=== PATIENT | female | born 1980 | race Caucasian/White ===

== ENCOUNTER 2016-05-28 20:58 | Emergency (ER) | payer MEDICAID ==
[~2016-05-28] VITALS: Ht 167.6 cm; Wt 104.8 kg
[2016-05-28 21:37] LABS: Basophils # (auto) 0.1 uL; Basophils % (auto) 0.5 % (0.0-2.0); Eosinophils # (auto) 0.4 uL; Eosinophils % (auto) 4.2 % (0.0-7.0); Hematocrit 36.2 % (36.0-46.0); Hemoglobin 12.1 g/dL (12.2-16.2); Lymphocytes # (auto) 2.8 uL; Lymphocytes % (auto) 29.4 % (10.0-50.0); Mean Corpuscular Hemoglobin 29.6 pg (28.0-32.0); Mean Corpuscular Hgb Conc. 33.5 g/dL (32.0-36.0); Mean Corpuscular Volume 88.3 fL (80.0-100.0); Monocytes # (auto) 0.6 uL; Monocytes % (auto) 6.1 % (0.0-12.0); Neutrophils # (auto) 5.7 uL; Neutrophils % (auto) 59.8 % (37.0-80.0); Platelet Count (auto) 300 10^3/uL (140-450); Red Cell Distribution Width 13.4 % (11.6-16.0); White Blood Cell 9.5 10^3/uL (4.4-10.8)
[2016-05-28 21:47] LABS: Potassium 3.4 mmol/L (3.5-5.1)
[2016-05-28 21:48] LABS: Albumin 3.8 g/dL (3.4-5.0); BUN/Creatinine Ratio 10.3; Calcium 8.7 mg/dL (8.5-10.1)
[2016-05-28 21:51] LABS: Bilirubin, Total 0.9 mg/dL (0.2-1.0); INR 0.98 (0.9-1.15); Partial Thromboplastin Time 25.2 sec (22.64-33.71); Prothrombin Time 10.1 sec (9.37-12.3); Total Protein 7.1 g/dL (6.4-8.2)
[2016-05-29 03:08] VITALS: BP 123/57
[2016-05-29 03:24] LABS: Urine Bilirubin Negative (Negative); Urine Blood 1+ /uL (Negative); Urine Color Yellow (Yellow); Urine Glucose Normal (Normal); Urine Ketone Negative (Negative); Urine Mucus FEW (None Seen); Urine Nitrite Negative (Negative); Urine RBC 5 /hpf (0 - 4); Urine Squamous Epithelial Cell FEW /hpf (<5); Urine Urobilinogen Normal (Negative); Urine pH 5.5 (5.0-8.0)
== END 2016-05-29 05:16 | disposition home or self-care (01) ==
LOC: ER 21:01
DX: O20.0 Threatened abortion (principal); Z3A.01 Less than 8 weeks gestation of pregnancy; R10.9 Unspecified abdominal pain
CPT/HCPCS: 36415; 76801; 80053; 81001; 84702; 85025; 85610; 85730

== ENCOUNTER 2020-02-07 21:46 | Emergency (ER) | payer MEDICAID ==
[~2020-02-07] VITALS: Ht 167.6 cm; Wt 107.5 kg
[2020-02-08 03:00] VITALS: BP 137/85
== END 2020-02-08 05:25 | disposition home or self-care (01) ==
LOC: ER 21:47
DX: J40 Bronchitis, not specified as acute or chronic (principal); J06.9 Acute upper respiratory infection, unspecified; E66.9 Obesity, unspecified; K21.9 Gastro-esophageal reflux disease without esophagitis; Z20.828 Contact with and (suspected) exposure to other viral communicable diseases
CPT/HCPCS: 36415; 71045; 87426; 99284; C9803; U0003